=== PATIENT | male | born 1955 | race Two or more races ===

== ENCOUNTER 2021-12-01 18:08 | Emergency (ER) | payer OTHER ==
[~2021-12-01] VITALS: Ht 165.1 cm; Wt 67.2 kg
[2021-12-01 19:57] LABS: Basophils # (auto) 0.1 10 ^3/uL (0-0.2); Basophils % (auto) 1.2 % (0.0-2.0); Eosinophils # (auto) 0.1 10 ^3/uL (0-0.8); Hemoglobin 12.8 g/dL (13.5-17.5); Lymphocytes # (auto) 1.7 10 ^3/uL (0.4-5.4)
[2021-12-01 20:00] LABS: Eosinophils % (auto) 0.9 % (0.0-7.0); Hematocrit 40.7 % (41.0-53.0); Lymphocytes % (auto) 25.3 % (10.0-50.0); Mean Corpuscular Hemoglobin 25.2 pg (28.0-32.0); Mean Corpuscular Hgb Conc. 31.5 g/dL (32.0-36.0); Mean Corpuscular Volume 80.1 fL (80.0-100.0); Monocytes % (auto) 15.1 % (0.0-12.0); Neutrophils # (auto) 3.8 10 ^3/uL (1.6-8.6); Neutrophils % (auto) 57.5 % (37.0-80.0); Nucleated Red Blood Cells % 0.7 %; Red Blood Cells 5.09 10^6/uL (4.5-5.90); Red Cell Distribution Width 19.1 % (11.8-14.3); White Blood Cell 6.6 10^3/uL (4.4-10.8)
[2021-12-01 20:10] LABS: Albumin 3.3 g/dL (3.4-5.0); BUN/Creatinine Ratio 24.6; Calcium 8.6 mg/dL (8.5-10.1)
[2021-12-01 20:15] LABS: Bilirubin, Total 1.1 mg/dL (0.2-1.0); Total Protein 6.8 g/dL (6.4-8.2)
[2021-12-01 20:42] LABS: Potassium 5.7 mmol/L (3.5-5.1)
[2021-12-02] MEDS ORDERED: SODIUM ZIRCONIUM CYCL 10 GM PAK PO ONE (06:45)
[2021-12-02] MEDS ORDERED: CALCIUM GLUC 1,000mg/50ml-NS 50 ML IV ONE (06:45)
[2021-12-02 08:04] LABS: Urine Bacteria FEW /hpf (None Seen); Urine Blood Negative /uL (Negative); Urine Specific Gravity 1.021 (1.001-1.035); Urine Sperm PRESENT /hpf (None Seen); Urine WBC 2 /hpf (0 - 3)
[2021-12-02] MEDS ORDERED: SODIUM CHLORIDE 0.9% 500 ML IVB ONE (08:30)
[2021-12-02] MEDS ORDERED: SODIUM CHLORIDE 0.9% 1,000 ML IV ONE (08:30)
[2021-12-02] MEDS ORDERED: FUROSEMIDE 40 MG/4 ML VIAL IV ONE (12:45)
[2021-12-02] MEDS ORDERED: LACTULOSE 20Gm/30ML SOLN PO ONE (12:45)
[2021-12-02 13:53] LABS: Calcium 8.3 mg/dL (8.5-10.1)
[2021-12-02 14:00] LABS: BUN/Creatinine Ratio 27.3
[2021-12-02 15:08] VITALS: BP 124/92
== END 2021-12-02 15:39 | disposition home or self-care (01) ==
LOC: ER 18:10
DX: E87.5 Hyperkalemia (principal); R10.84 Generalized abdominal pain; I10 Essential (primary) hypertension; E11.9 Type 2 diabetes mellitus without complications
CPT/HCPCS: 36415; 71046; 74176; 80048; 80053; 81001; 82150; 83690; 83735; 84443; 85025; 93005; 96361; 96365; 96375; 99285; J0610; J1940

== ENCOUNTER 2022-09-05 19:43 | Inpatient (IN) | payer MEDICARE, OTHER ==
[~2022-09-05] VITALS: Ht 165.1 cm; Wt 70.6 kg
[2022-09-05 23:35] LABS: Urine Amorphous Crystal FEW /hpf (None Seen); Urine Bacteria FEW /hpf (None Seen); Urine Blood Negative /uL (Negative); Urine Specific Gravity 1.018 (1.001-1.035); Urine WBC 1 /hpf (0 - 3)
[2022-09-05] MEDS ORDERED: IOHEXOL 300 MG/ML 100ML BOTTLE IJ ONE (23:56)
[2022-09-06] MEDS ORDERED: SODIUM CHLORIDE 0.9% 1,000 ML IVB ONE
[2022-09-06] MEDS ORDERED: MORPHINE SULFATE 4 MG/ML SYR/VIAL IV ONE
[2022-09-06 01:05] LABS: Basophils # (auto) 0.1 10 ^3/uL (0-0.2); Eosinophils # (auto) 0.1 10 ^3/uL (0-0.8); Hematocrit 38.3 % (41.0-53.0); Hemoglobin 11.9 g/dL (13.5-17.5); Lymphocytes # (auto) 0.7 10 ^3/uL (0.4-5.4); Monocytes # (auto) 0.8 10 ^3/uL (0-1.3)
[2022-09-06 01:07] LABS: Basophils % (auto) 1.2 % (0.0-2.0); Eosinophils % (auto) 1.9 % (0.0-7.0); Lymphocytes % (auto) 12.9 % (10.0-50.0); Mean Corpuscular Hemoglobin 23.6 pg (28.0-32.0); Mean Corpuscular Volume 76.1 fL (80.0-100.0); Monocytes % (auto) 13.5 % (0.0-12.0); Neutrophils % (auto) 70.5 % (37.0-80.0); Nucleated Red Blood Cells % 0.2 %; Red Blood Cells 5.03 10^6/uL (4.5-5.90); Red Cell Distribution Width 19.8 % (11.8-14.3); White Blood Cell 5.7 10^3/uL (4.4-10.8)
[2022-09-06 01:16] LABS: INR 1.36 (0.9-1.15); Partial Thromboplastin Time 33.4 sec (24.6-33.4)
[2022-09-06 01:19] LABS: Albumin 2.1 g/dL (3.4-5.0); Calcium 6.8 mg/dL (8.5-10.1); Magnesium 1.9 mg/dL (1.6-2.6); Potassium 4.6 mmol/L (3.5-5.1)
[2022-09-06 01:31] LABS: BUN/Creatinine Ratio 24.3; Bilirubin, Total 0.7 mg/dL (0.2-1.0); Total Protein 5.3 g/dL (6.4-8.2)
[2022-09-06] MEDS ORDERED: DEXTROSE (50%) 50ML SYRG IV PRN (09:30)
[2022-09-06] MEDS ORDERED: NITROGLYCERIN 0.4 MG SL TAB SL PRN (09:30)
[2022-09-06] MEDS ORDERED: MORPHINE SULFATE INJ 2 MG/ml SYRG IV PRN ×2 (09:30)
[2022-09-06] MEDS ORDERED: ISO60SRT PO (09:51)
[2022-09-06] MEDS ORDERED: SPIR100T4 PO (09:51)
[2022-09-06] MEDS ORDERED: ATOR-47 PO (09:51)
[2022-09-06] MEDS ORDERED: POTA1TAB61 PO (09:51)
[2022-09-06] MEDS ORDERED: FUR20T PO (09:51)
[2022-09-06] MEDS ORDERED: ENOXAPARIN SOD 40 MG/0.4 ML SYRINGE SC SCH (10:00)
[2022-09-06 10:10] LABS: Cholesterol 75 mg/dL (< 200); HDL Cholesterol 23 mg/dL (40-59); LDL Cholesterol 52 mg/dL (< 100); Triglycerides 56 mg/dL (< 150)
[2022-09-06] MEDS: InsuLIN REG 1unit/0.01ml Soln (100units/ml) SC SCH ×3 (11:30→21:35)
[2022-09-06 11:33] LABS: Hepatitis B Surface Antibody Negative (Negative)
[2022-09-06] MEDS: ACCU-CHEK COMFORT CURVE STRIP VI SCH ×3 (11:55→21:35)
[2022-09-06 12:12] LABS: Hepatitis A Total Antibody Positive (Negative)
[2022-09-06] MEDS ORDERED: CIPROFLOXACIN HCL 500 MG TAB PO ONE (15:45)
[2022-09-06 17:00] VITALS: BP 127/93
[2022-09-06] MEDS ORDERED: METF-490 PO (17:56)
[2022-09-06] MEDS ORDERED: EMPA1TAB3 PO (17:56)
[2022-09-06] MEDS ORDERED: GLIM-6 PO (17:56)
[2022-09-06] MEDS ORDERED: HYDR-4298 PO (17:56)
[2022-09-06] MEDS ORDERED: METO1TAB9 PO (17:56)
[2022-09-06] MEDS: TAMSULOSIN HYDROCHLORIDE 0.4 MG CAP PO SCH (18:25)
[2022-09-06 20:25] VITALS: BP 108/67
[2022-09-06 21:38] VITALS: BP 108/67
[2022-09-06] MEDS: CIPROFLOXACIN HCL 500 MG TAB PO SCH (21:38)
[2022-09-07] VITALS (7 sets, daily range): BP systolic 108–130; BP diastolic 67–95
[2022-09-07] MEDS: ACCU-CHEK COMFORT CURVE STRIP VI SCH ×4 (05:59→21:10)
[2022-09-07] MEDS: InsuLIN REG 1unit/0.01ml Soln (100units/ml) SC SCH ×4 (06:01→21:11)
[2022-09-07 06:06] LABS: Basophils # (auto) 0.1 10 ^3/uL (0-0.2); Basophils % (auto) 1.2 % (0.0-2.0); Eosinophils # (auto) 0.1 10 ^3/uL (0-0.8); Eosinophils % (auto) 1.1 % (0.0-7.0); Hematocrit 39.5 % (41.0-53.0); Hemoglobin 12.2 g/dL (13.5-17.5); Lymphocytes # (auto) 0.8 10 ^3/uL (0.4-5.4); Lymphocytes % (auto) 11.7 % (10.0-50.0); Mean Corpuscular Hemoglobin 24.1 pg (28.0-32.0); Mean Corpuscular Hgb Conc. 30.8 g/dL (32.0-36.0); Mean Corpuscular Volume 78.1 fL (80.0-100.0); Monocytes % (auto) 16.2 % (0.0-12.0); Neutrophils # (auto) 4.5 10 ^3/uL (1.6-8.6); Neutrophils % (auto) 69.8 % (37.0-80.0); Red Blood Cells 5.05 10^6/uL (4.5-5.90); White Blood Cell 6.5 10^3/uL (4.4-10.8)
[2022-09-07 06:07] LABS: Red Cell Distribution Width 20.4 % (11.8-14.3)
[2022-09-07 06:31] LABS: Calcium 7.5 mg/dL (8.5-10.1); Potassium 4.9 mmol/L (3.5-5.1)
[2022-09-07 06:36] LABS: BUN/Creatinine Ratio 23.1; Bilirubin, Total 1.3 mg/dL (0.2-1.0); Total Protein 5.2 g/dL (6.4-8.2)
[2022-09-07] MEDS: CIPROFLOXACIN HCL 500 MG TAB PO SCH (11:07)
[2022-09-07] MEDS ORDERED: SPIRONOLACTONE 25 MG TAB PO ONE (12:15)
[2022-09-07] MEDS ORDERED: cefTRIAXone 1GM/50ML D5W 50 ML IV ONE (12:15)
[2022-09-07] MEDS ORDERED: traMADol HCL 50 MG TAB PO PRN (12:15)
[2022-09-07] MEDS ORDERED: FUROSEMIDE 20 MG/2 ML VIAL IV ONE (12:15)
[2022-09-07] MEDS: TAMSULOSIN HYDROCHLORIDE 0.4 MG CAP PO SCH (18:00)
[2022-09-07] MEDS: LACTULOSE 20Gm/30ML SOLN PO SCH (21:10)
[2022-09-08] VITALS (7 sets, daily range): BP systolic 105–124; BP diastolic 67–87
[2022-09-08] MEDS: InsuLIN REG 1unit/0.01ml Soln (100units/ml) SC SCH ×4 (06:16→21:56)
[2022-09-08] MEDS: ACCU-CHEK COMFORT CURVE STRIP VI SCH ×4 (06:16→21:54)
[2022-09-08 06:21] LABS: BUN/Creatinine Ratio 23.9; Calcium 7.3 mg/dL (8.5-10.1); Potassium 4.2 mmol/L (3.5-5.1)
[2022-09-08] MEDS: cefTRIAXone 1GM/50ML D5W 50 ML IV SCH (09:00)
[2022-09-08] MEDS: LACTULOSE 20Gm/30ML SOLN PO SCH ×3 (10:00→21:54)
[2022-09-08] MEDS: FUROSEMIDE 20 MG/2 ML VIAL IV SCH (10:00)
[2022-09-08] MEDS: SPIRONOLACTONE 25 MG TAB PO SCH (10:13)
[2022-09-08] MEDS: TAMSULOSIN HYDROCHLORIDE 0.4 MG CAP PO SCH (18:00)
[2022-09-09 05:00] VITALS: BP 104/77
[2022-09-09] MEDS: ACCU-CHEK COMFORT CURVE STRIP VI SCH ×2 (06:15→11:30)
[2022-09-09] MEDS: InsuLIN REG 1unit/0.01ml Soln (100units/ml) SC SCH ×2 (06:16→11:30)
[2022-09-09 08:00] VITALS: BP 105/77
[2022-09-09 08:30] VITALS: BP 105/77
[2022-09-09] MEDS: cefTRIAXone 1GM/50ML D5W 50 ML IV SCH (09:00)
[2022-09-09] MEDS: SPIRONOLACTONE 25 MG TAB PO SCH (10:00)
[2022-09-09] MEDS: LACTULOSE 20Gm/30ML SOLN PO SCH (10:00)
[2022-09-09] MEDS: FUROSEMIDE 20 MG/2 ML VIAL IV SCH (10:00)
[2022-09-09] MEDS ORDERED: LEVO500T31 PO ×2 (10:51)
[2022-09-09] MEDS ORDERED: TAM04C PO ×2 (10:51)
[2022-09-09] MEDS ORDERED: LACT10SO3 PO ×2 (10:51)
[2022-09-09 12:00] VITALS: BP 110/76
[2022-09-09 14:43] VITALS: BP 124/87
[2022-09-09 15:42] LABS: Hepatitis C Antibody Negative (Negative)
== END 2022-09-09 13:50 | disposition home or self-care (01) | DRG 728 ==
LOC: ER 19:46 → OVERFLOW 09-06 09:25 → EAST 09-06 15:42
PROVIDERS: ADMIT Registered Nurse; ATTEND Internal Medicine
DX: N45.1 Epididymitis (principal); I42.9 Cardiomyopathy, unspecified; R18.8 Other ascites; D68.59 Other primary thrombophilia; J90 Pleural effusion, not elsewhere classified; E44.0 Moderate protein-calorie malnutrition; N48.89 Other specified disorders of penis; E78.5 Hyperlipidemia, unspecified; R33.8 Other retention of urine; N40.1 Benign prostatic hyperplasia with lower urinary tract symptoms; D63.8 Anemia in other chronic diseases classified elsewhere; Z20.822 Contact with and (suspected) exposure to COVID-19; E11.9 Type 2 diabetes mellitus without complications; I11.0 Hypertensive heart disease with heart failure; N47.1 Phimosis; N50.89 Other specified disorders of the male genital organs; E87.5 Hyperkalemia; K86.89 Other specified diseases of pancreas; K59.00 Constipation, unspecified; I25.10 Atherosclerotic heart disease of native coronary artery without angina pectoris; K74.60 Unspecified cirrhosis of liver; Z79.899 Other long term (current) drug therapy; Z68.25 Body mass index [BMI] 25.0-25.9, adult
CPT/HCPCS: 36415; 74177; 76705; 76870; 80048; 80053; 80061; 81001; 82105; 82140; 82150; 82962; 83036; 83605; 83690; 83735; 83880; 84154; 84484; 85025; 85610; 85730; 86704; 86706; 86708; 86803; 87340; 87426; 96360; 96361; G0378; J0696; J1815

== ENCOUNTER 2022-09-11 19:06 | Emergency (ER) | payer MEDICARE, OTHER ==
[~2022-09-11] VITALS: Ht 165.1 cm; Wt 63.6 kg
[~2022-09-11 19:06] MED LIST: ATOR-47 PO; EMPA1TAB3 PO; FUR20T PO; GLIM-6 PO; HYDR-4298 PO; ISO60SRT PO; LACT10SO3 PO; LEVO500T31 PO; METF-490 PO; METO1TAB9 PO; POTA1TAB61 PO; SPIR100T4 PO; TAM04C PO
[2022-09-11 19:38] VITALS: BP 107/82
[2022-09-11] MEDS ORDERED: CLIN300C8 PO (20:34)
[2022-09-11] MEDS ORDERED: CEPH-510 PO (20:34)
== END 2022-09-11 23:51 | disposition home or self-care (01) ==
LOC: ER 19:06
DX: K74.60 Unspecified cirrhosis of liver (principal); N45.1 Epididymitis; N43.3 Hydrocele, unspecified
CPT/HCPCS: 76870